=== PATIENT | male | born 1965 | race Caucasian/White ===

== ENCOUNTER 2017-06-03 14:53 | Emergency (ER) | payer OTHER ==
[~2017-06-03] VITALS: Ht 157.5 cm; Wt 36.7 kg
--- NOTE | ~2017-06-03 | EKG ---
[place] [address] [facility] [place] [address] ELECTROCARDIOGRAM REPORT Name: LOIDA MCFADDEN [facility] [id number] Admission: 06/03/17 Attend Phys: Discharge: 06/03/17 Date of : 65 Report #: [id number] THIS REPORT FOR: //name// [facility] ED Test Date: 2017-06-03 Test Time: 15:28:15 Pat Name: LODIA MCFADDEN Department: Room: Gender: M Hand Touch Up Painter: JAVIER : 1965 Requested By: Lorna May Order Number: [id number] MD: Veto Gonzalez Measurements Intervals [place] Rate: 49 P: 47 ME: 118 QRS: -31 QRSD: 84 T: 66 QT: 457 QTc: 413 Interpretive Statements Sinus bradycardia Left axis deviation Nonspecific T abnrm Baseline wander in lead(s) V1 No previous ECG available for comparison Electronically Signed On 06-04-2017 7:53:53 CDT by Veto Gonzalez [email or web address] <ELECTRONICALLY SIGNED> By: Veto Gonzalez MD, [facility] 06/04/17 0753 D: 08/8 152 Veto Gonzalez MD, FACC /EPI
[2017-06-03] MEDS ORDERED: FOLIC ACID1 MG PO (15:49)
[2017-06-03] MEDS ORDERED: LEVOTHYROXIN0.112 M1 PO (15:49)
[2017-06-03 15:52] LABS: ABSOLUTE NEUTROPHILS 2.8 thou/uL (1.4-8.2); EOSINOPHILS 1.6 % (0.0-3.0); HEMATOCRIT 39.4 % (42.0-52.0); HEMOGLOBIN 13.3 gm/dL (14.0-18.0); LYMPHOCYTES 24.1 % (24.0-44.0); MANUAL DIFF NO; MCH 31.7 pg (26.0-34.0); MCHC 33.7 g/dL (28.0-37.0); MCV 94.2 fL (80.0-100.0); MONOCYTES 7.8 % (1.0-8.0); PLATELET COUNT 293 thou/uL (150-400); POLYS 65.5 % (36.0-66.0); RBC 4.18 mil/uL (4.50-6.00); RDW 14.9 % (10.5-14.5); WBC 4.2 thou/uL (4.0-11.0)
[2017-06-03] MEDS ORDERED: PRILOSEC 10MG C10 MG PO (15:52)
[2017-06-03 16:00] LABS: ANION GAP 4 mmol/L (7-16); BUN 28 mg/dL (7-18); CALCIUM 8.8 mg/dL (8.5-10.1); CHLORIDE 109 mmol/L (98-107); CO2 33 mmol/L (21-32); CREATININE 1.1 mg/dL (0.7-1.3); GLUCOSE 103 mg/dL (74-106); POTASSIUM 4.1 mmol/L (3.5-5.1); SODIUM 146 mmol/L (136-145)
[2017-06-03] MEDS ORDERED: IRON325 PO (16:00)
[2017-06-03] MEDS ORDERED: UNICOMPLEX M TA1 TA1 PO (16:01)
[2017-06-03] MEDS ORDERED: PROLIA60 MG/1 ML SQ (16:01)
[2017-06-03] MEDS ORDERED: COLACE100 MG PO (16:01)
[2017-06-03] MEDS ORDERED: CALCIUM 500 +1 EAC5 PO (16:01)
[2017-06-03 16:08] LABS: ALBUMIN 2.9 g/dL (3.4-5.0); ALKALINE PHOSPHATASE 80 U/L (46-116); SGOT 31 U/L (15-37); SGPT 25 U/L (30-65); TOTAL BILIRUBIN 0.3 mg/dL (<0.1-1.0); TOTAL PROTEIN 7.5 g/dL (6.4-8.2); TROPONIN-I < 0.04 ng/mL (<0.04-0.07)
[2017-06-03 16:24] LABS: URINE BLOOD TRACE (Negative); URINE COLOR YELLOW; URINE GLUCOSE-RANDOM* NEGATIVE (Negative); URINE KETONES TRACE (Negative); URINE NITRITE POSITIVE (Negative); URINE PROTEIN (DIPSTICK) 1+ (Negative); URINE SPECIFIC GRAVITY >= 1.030 (1.003-1.035); URINE UROBILINOGEN 0.2 E.U./dl (0.2-1.0)
[2017-06-03 16:26] LABS: ICTOTEST (BILI CONFIRMATORY) Negative (Negative); URINE BILIRUBIN NEGATIVE (Negative)
[2017-06-03 16:36] LABS: BACTERIA >30 Many /HPF (None Seen); CRYSTALS None Seen /LPF (None Seen); HYALINE CASTS 0-3 Few /LPF (None Seen); SQUAMOUS 0-3 Few /LPF (0-3); URINE RBC 3-10 Few /HPF (0-2); URINE WBC >25 Many /HPF (0-5)
[2017-06-03 18:49] VITALS: BP 115/56
[2017-06-03] MEDS ORDERED: KEFLEX250 MG/5 M PO (18:50)
== END 2017-06-03 18:54 | disposition home or self-care (01) ==
LOC: ER 14:53
PROVIDERS: Physician Assistant
DX: N39.0 Urinary tract infection, site not specified (principal); E05.90 Thyrotoxicosis, unspecified without thyrotoxic crisis or storm; R53.1 Weakness; E03.9 Hypothyroidism, unspecified; Z98.890 Other specified postprocedural states; Z88.8 Allergy status to other drugs, medicaments and biological substances; Z88.1 Allergy status to other antibiotic agents

== ENCOUNTER 2020-05-24 07:11 | Inpatient (IN) | payer OTHER ==
[~2020-05-24] VITALS: Ht 152.4 cm; Wt 40.1 kg
--- NOTE | ~2020-05-24 | EMS ---
[facility] [address] [place] [address] EMS Patient Care Report Name: LOIDA MCFADDEN Room #: REG JADIEL Navarrete#: [id number] Admission: 05/24/20 Attend Phys: Discharge: Date of : 65 Report #: [id number] THIS REPORT FOR: //name// Report Transmitted: 05/24/2020 07:00 EMS Care Summary [place], [place]/[facility] Incident [id number] @ 05/24/2020 06:41 Incident Location [address] Patient LOIDA MCFADDEN Male, 54 Years 1965 Patient Address [id number] [place] [address] [address] [place] [address] Patient History Other,Gastro-Esophageal Reflux Disease (GERD),Anemia,Hypothyroidism,Celiac Disease, Patient Allergies Doxycycline,Bactrim,Cipro, Patient Medications Melatonin, Fluticasone, Sertraline, Levothyroxine, Omeprazole, Loratadine, Chief Complaint LEG PAIN Disposition Transported No Lights/[place] Dispatch Reason Falls Transported To [facility] Narrative DISPATCHED FOR A FALL. UPON ARRIVAL ON SCENE, RECEIVED REPORT FROM NURSE. PT HAD EXPERIENCED AN UNWITNESSED FALL. PT ALSO REPORTEDLY HAD DOWN SYNDROME AND [facility] [address] [place] [address] EMS Patient Care Report Name: LOIDA MCFADDEN Room #: REG JADIEL Navarrete#: [id number] Admission: 05/24/20 Attend Phys: Discharge: Date of : 65 Report #: [id number] WAS NON VERBAL AT BASELINE. UPON ARRIVAL AT PT, HE WAS FOUND SITTING IN CHAIR, WITH HIS RIGHT LEG BENT, AND HE WAS CLUTCHING IT. I ASKED HIM TO POINT TO WHERE HE HURT AND HE POINTED TO HIS RIGHT LATERAL THIGH. I ASKED IF HE FELL AND HE NODDED TO INDICATE "YES." THERE WAS NO DEFORMITY OR DISCOLORATION NOTED. PT MOVED TO [facility], SECURED AND MOVED TO AMBULANCE WITHOUT ISSUE. PT MONITORED THROUGHOUT TX WITHOUT CHANGE IN STATUS. Initial Vitals @06:59P: 70,R: 16,BP: 124/66,Pain: 4/10,GCS: 13,SpO2: 100,Revised Trauma: 12, @07:05P: 68,R: 16,BP: 118/64,Pain: 4/10,GCS: 13,SpO2: 99,Revised Trauma: 12, @06:54P: 60,R: 16,Pain: 4/10,GCS: 13, Assessments @06:54MENTAL:Person Oriented,Event Oriented,SKIN:HEENT:Head/Face: No Abnormalities,Neck/Airway: No Abnormalities,LUNG SOUNDS:General: No Abnormalities,Left Upper: No Abnormalities,Right Upper: No Abnormalities,Left Lower: No Abnormalities,Right Lower: No Abnormalities,ABDOMEN:General: No Abnormalities,Left Upper: No Abnormalities,Right Upper: No Abnormalities,Left Lower: No Abnormalities,Right Lower: No Abnormalities,PELVIS//GI:No Abnormalities,EXTREMITIES:Right Leg: Other,Capillary Refill: Left Upper: < 2 Sec,Left Arm: No Abnormalities,Right Arm: No Abnormalities,Left Leg: No Abnormalities,PULSE:Radial: 2+ Normal,NEURO:No Abnormalities,@07:01MENTAL:Event Oriented,Person Oriented,SKIN:HEENT:Head/Face: No Abnormalities,Neck/Airway: No Abnormalities,LUNG SOUNDS:General: No Abnormalities,Left Upper: No Abnormalities,Right Upper: No Abnormalities,Left Lower: No Abnormalities,Right Lower: No Abnormalities,ABDOMEN:General: No Abnormalities,Left Upper: No Abnormalities,Right Upper: No Abnormalities,Left Lower: No Abnormalities,Right Lower: No Abnormalities,PELVIS//GI:No Abnormalities,EXTREMITIES:Right Leg: Other,Capillary Refill: Left Upper: < 2 Sec,Left Arm: No Abnormalities,Right Arm: No Abnormalities,Left Leg: No Abnormalities,PULSE:Radial: 2+ Normal,NEURO:No Abnormalities, Impression Injury of Thigh (Upper Leg) Procedures @06:54ALS AssessmentResponse: UnchangedSucceeded@06:57StretcherResponse: Unchanged Timeline 06:39,Call Received 06:39,Dispatch Notified 06:41,Dispatched 06:44,En Route 06:51,On Scene 06:54,At Patient [address] [address] EMS Patient Care Report Name: LOIDA MCFADDEN Room #: REG JADIEL Navarrete#: [id number] Admission: 05/24/20 Attend Phys: Discharge: Date of : 65 Report #: [id number] 06:54,ALS Assessment,Response: UnchangedSucceeded, 06:54,BP: / M,PULSE: 60,RR: 16 R,SPO2: Ox,ETCO2: ,BG: ,PAIN: 4,GCS: 13, 06:57,Stretcher,Response: Unchanged 06:59,BP: 124/66 M,PULSE: 70,RR: 16 R,SPO2: 100 Ox,ETCO2: ,BG: ,PAIN: 4,GCS: 13, 07:01,Depart Scene 07:05,BP: 118/64 M,PULSE: 68,RR: 16 R,SPO2: 99 Ox,ETCO2: ,BG: ,PAIN: 4,GCS: 13, 07:07,At Destination 07:35,Call Closed Disclaimer v1.1 Copyright 2020 [employer] This EMS Care Summary contains data elements from the applicable legal record (which may be displayed differently). It is designed to provide pertinent information for the following purposes: continuity of care, clinical quality, and state data reporting. The complete legal record is available to ED staff and administrators of the receiving hospital in [place] [employer] Patient Tracker. All data is provided "as is."
[~2020-05-24 07:11] MED LIST: CALCIUM 500 +1 EAC5 PO; COLACE100 MG PO; FOLIC ACID1 MG PO; IRON325 PO; KEFLEX250 MG/5 M PO; LEVOTHYROXIN0.112 M1 PO; PRILOSEC 10MG C10 MG PO; PROLIA60 MG/1 ML SQ; UNICOMPLEX M TA1 TA1 PO
[2020-05-24 07:13] VITALS: BP 130/63
[2020-05-24] MEDS ORDERED: FLUTICASONE PRO16 GM (08:18)
[2020-05-24] MEDS ORDERED: LORATIDINE 10 M10 M1 PO (08:19)
[2020-05-24] MEDS ORDERED: OMEPRAZOLE 20 M20 M1 PO (08:19)
[2020-05-24] MEDS ORDERED: MELATONIN5 MG (08:19)
[2020-05-24] MEDS ORDERED: SERTRALINE HCL50 MG PO (08:20)
[2020-05-24] MEDS ORDERED: VITAMIN D-40010 MCG PO (08:22)
[2020-05-24 11:51] LABS: ABSOLUTE NEUTROPHILS 6.9 thou/uL (1.4-8.2); BASOPHILS 0.2 % (0.0-2.0); EOSINOPHILS 0.1 % (0.0-3.0); HEMATOCRIT 28.2 % (42.0-52.0); HEMOGLOBIN 9.6 gm/dL (14.0-18.0); LYMPHOCYTES 10.3 % (24.0-44.0); MCH 32.8 pg (26.0-34.0); MCHC 34.1 g/dL (28.0-37.0); MCV 96.3 fL (80.0-100.0); MONOCYTES 5.4 % (1.0-8.0); PLATELET COUNT 287 thou/uL (150-400); RBC 2.93 mil/uL (4.50-6.00); RDW 15.7 % (10.5-14.5); WBC 8.2 thou/uL (4.0-11.0)
[2020-05-24 11:55] LABS: CALCIUM 8.1 mg/dL (8.5-10.1); CREATININE 0.9 mg/dL (0.7-1.3); POTASSIUM 3.8 mmol/L (3.5-5.1)
[2020-05-24 16:06] VITALS: BP 100/65
[2020-05-24 16:19] VITALS: BP 100/65
[2020-05-24 16:54] VITALS: BP 110/66
--- NOTE | 2020-05-24 19:07 | NUR ---
[facility] WITH BANDAIDS IN PLACE. PATIENT C/O DISCOMFORT WITH ABDOMEN AREA, 01/19, BUT WANTS TO WAIT UNTIL BEDTIME TO TAKE PAIN MEDS. PATIENT HAS RIGHT UPPER ARM IV IN PLACE, IV FLUIDS STARTED BY SRIKANTH/RN. ADMISSION COMPLETED, REPORT GIVEN TO SRIKANTH.
--- NOTE | 2020-05-24 19:10 | NUR ---
PATIENT ADMITTED FROM ER WITH PELVIC FRACTURE, DISCOMFORT NOTED WITH MOVEMENT. PATIENT HAS DOWNS SYNDROME. PATIENT UNABLE TO SPEAK TO ANSWER QUESTIONS. MARYA/BROTHER HERE FOR ADMISSION. PATIENT HAS LEFT HAND IV IN PLACE. ALERT X 1. LIVES AT [facility]. ADMISSION DONE, REPORT GIVEN TO RADHA/RN.
[2020-05-24 19:19] VITALS: BP 117/58
--- NOTE | 2020-05-25 03:04 | NUR ---
RECEIVED CARE OF THIS PATIENT AT 1900. PATIENT DOES NOT SPEAK MUCH. ORIENTED TO SELF. C/O PAIN, MED GIVEN. R LEG CONTRACTED. SCD'S ON SABIHA LOWER EXT. IS A FEEDER. TAKES MEDS IN APPLESAUCE BUT HOLDS THEM IN MOUTH. NEEDS TO BE CRUSHED IF POSSIBLE. SLEPT MOST OF NIGHT.
[2020-05-25 04:48] VITALS: BP 114/55
[2020-05-25 08:27] VITALS: BP 94/55
--- NOTE | 2020-05-25 13:17 | NUR ---
ASSESSMENT: CM REVIEWED CHART AND MET WITH PATIENT. PT IS A 54 YEAR OLD MALE WITH HX OF DOWNS SYNDROME WHO WAS ADMITTED AFTER A FALL AND HAS PUBIC RAMI FRACTURES. PT IS ABLE TO KNOD YES OR NO BUT UNABLE TO PROVIDE CM WITH INFORMATION. CM REACHED OUT TO PATIENTS BROTHER MARYA WHO REPORTS HE IS HIS DPOA. PT IS FROM [facility]. HE NORMALLY IS ABLE TO AMBULATES INDEPENDENTLY HIS BROTHER STATES BUT IS JUST VERY VERY SLOW. HE STATES HE NORMALLY DOES NOT USE ANY DME. HE REPORTS THAT PATIENTS MOTHER IS CURRENTLY AT [facility] AND THAT PATIENT HAS BEEN TO THEIR SNF BEFORE. HIS BROTHER ALSO REPORTS THAT PT GETS ASSITANCE AT [facility] THROUGH HIS MEDICAID WHERE SOMEONE COMES TO BE WITH HIM 5 DAYS A WEEK M-FRI FROM 9-1430 AND THEN HE AND HIS SISTER SPEND TIME WITH HIM ON THE WEEKENDS. PT/OT HAS BEEN ORDERED TO SEE PATIENT AND ALSO A 5N CONSULT WAS PLACED. CM AWAITING FURTHER INPUT FROM THERAPIES AND 5N AT THIS TIME.
--- NOTE | 2020-05-25 15:41 | NUR ---
ASSUMED CARE OF PATIENT AT SHIFT CHANGE. ASSESSMENT CHARTED. MEDICATION GIVEN PER DEC. PATIENT TAKES PILLS CRUSHED W APPLESAUCE. PATIENT HAS PT/OT AND SPEECH ON TREATMENT TEAM. PATIENT IS NOW ON A MECHANICAL SOFT DIET. PATIENT REQUESTED SOME "PEPSI"; AND TOLERATES THIN LIQUIDS WELL. IS PLEASANT AND ALERT. IS VISIBLY IN PAIN; PRN PAIN MEDICINE ADMINISTERED. PAIN APPEARS RELIEVED. FALL PRECAUTIONS IN PLACE BUT PATIENT IS NOT IMPULSIVE. WILL NOT HAVE SURGICAL INTERVENTION. REMAINS STABLE AND DOES NOT VOICE ANY OTHER NEEDS. WILL CONTINUE TO MONITOR AND FOLLOW POC
[2020-05-25 16:30] VITALS: BP 91/56
--- NOTE | 2020-05-25 18:06 | NUR ---
NEW ONSET OF CONGESTION/COUGH TODAY AT 1700;
--- NOTE | 2020-05-25 19:41 | NUR ---
contacted Delphine orozco secondary to congestion, orders received, pharmacy contacted secondary to benadryl allergy pharmacy states it is a different class and should be ok to give, also pharmacy states ok to crush claritin, sertraline, and tramadol. will continue to monitor, baseline assessment completed, pt resting in bed with no complaints eating pudding, fall precautions in place.
[2020-05-25 20:10] VITALS: BP 91/56
--- NOTE | 2020-05-25 21:07 | NUR ---
1900 ASSUMED CARE OF PT AFTER BEDSIDE REPORT, PT RESTING IN BED WITH MARYA HIS GUARDIAN AT BEDSIDE, PT IS EATING DINNER UNASSISTED BED AT 90 DEGREES, 2029 BASELINE ASSESSMENT COMPLETED, PT DOES NOT APPEAR TO BE IN PAIN AT THIS TIME, PT POSITION CHANGED TO LEFT SIDE, BRIEF CHECKED AND DRY. MEDS CRUSHED AND GIVEN PT TOLERATED WELL, SCDS IN PLACE TO BILATERAL LE, FALL PRECAUTIONS IN PLACE, WILL CONTINUE TO MONITOR AND Q2 HOUR TURN
[2020-05-25 22:00] VITALS: BP 102/59
[2020-05-26] VITALS (70 sets, daily range): BP systolic 63–132; BP diastolic 32–70
--- NOTE | 2020-05-26 03:20 | NUR ---
SPINE SURGEON ACTIVATED FOR INCREASED O2 DEMANDS. SEE FLOWSHEET FOR DETAILS.
[2020-05-26 03:26] LABS: BE(vivo) 1.8 mmol/L (-2 to +3); HCO3 26.8 mmol/L (22.0-26.0); PCO2 43.7 mmHg (35.0-45.0); PO2 69.8 mmHg (80.0-100.0); pH 7.406 (7.360-7.450); sO2 94.1 % (92.0-98.0)
[2020-05-26 03:43] LABS: BASOPHILS 0.2 % (0.0-2.0); HEMATOCRIT 24.7 % (42.0-52.0); HEMOGLOBIN 8.1 gm/dL (14.0-18.0); MCH 32.3 pg (26.0-34.0); MCV 97.7 fL (80.0-100.0); MONOCYTES 5.2 % (1.0-8.0); PLATELET COUNT 222 thou/uL (150-400); POLYS 90.6 % (36.0-66.0); RBC 2.53 mil/uL (4.50-6.00); WBC 9.9 thou/uL (4.0-11.0)
[2020-05-26 04:12] LABS: ALBUMIN 1.2 g/dL (3.4-5.0); CREATININE 0.9 mg/dL (0.7-1.3); TOTAL BILIRUBIN 0.3 mg/dL (0.2-1.0); TOTAL PROTEIN 4.4 g/dL (6.4-8.2)
[2020-05-26 04:25] LABS: CALCIUM 5.4 mg/dL (8.5-10.1)
--- NOTE | 2020-05-26 04:50 | NUR ---
0310 WHILE DOING ROUNDS AND REPOSITIONING PT, RECOGNIZED THAT HE WAS FEBRILE WITH MENTAL STATUS CHANGES MUCH LESS RESPONSIVE, HYPOTENSIVE, TACHYCARDIC, AND HYPOXIC . rAPID RESPONSE CALLED, NONREBREATHER APPLIED AT 100 PERCENT, NEEDLE PUNCH MACHINE OPERATOR HELPER, DORENE AMANDA, RT LAB AND NURSING TO ROOM.NS BOLUS STARTED PER DORENE AMANDA 324 PT TRANSPORTED TO ICU WITH DORENE AMANDA AND REPORT GIVEN TO ICU NURSE AT BEDSIDE.
[2020-05-26 07:52] LABS: CALCIUM 6.2 mg/dL (8.5-10.1); CREATININE 1.4 mg/dL (0.7-1.3); MAGNESIUM 1.4 mg/dL (1.8-2.4)
[2020-05-26 07:55] LABS: APTT 37.3 Seconds (24.5-32.8); D-DIMER 4.28 ug/mLFEU (0.19-0.50); INR 1.3; PROTIME 13.7 Seconds (9.3-11.4)
--- NOTE | 2020-05-26 07:56 | NUR ---
TRANSFER PT TO ROOM 239 AT SHIFT CHANGE. PT WILL BE R/O COVID.
[2020-05-26 07:57] LABS: POTASSIUM 4.1 mmol/L (3.5-5.1)
--- NOTE | 2020-05-26 08:48 | HC ---
[facility] [place] [address] CONSULTATION Name: LOIDA MCFADDEN Room #: 239-P ADM IN M.R.#: [id number] Admission: 05/24/20 Attend Phys: River Hidalgo, Discharge: Date of : 65 Report #: [id number] THIS REPORT FOR: cc: Alejandra Cherry MD,Jez Olguin MD, MD ~ CC: Alejandra Hidalgo [facility] DATE OF SERVICE: 05/26/2020 INFECTIOUS DISEASE CONSULTATION ATTENDING PHYSICIAN: Dr. Hidalgo. REASON FOR EVALUATION: Septic shock. HISTORY OF PRESENT ILLNESS: Chart reviewed, the patient examined. This is a 54-year-old gentleman with a reportedly Down syndrome, who sustained injury as a result of a fall with a pubic rami fracture on the day of admission, was evaluated and was nondisplaced, was maintained in the hospital, developed in 24 hours a temperature elevation to 100.5 with hemodynamic instability, hypotension with a systolic in the 60s. He was found to be hypoxemic with pO2 on 15 liters 69.8. Due to his unstable condition, he was transferred to Intensive Care Unit. He was started on broad-spectrum therapy with Zosyn and vancomycin. Cultures are pending. Clinically, he has improved, although still somewhat hypotensive with tachycardia improved. He is unable to give too much details of his history. ALLERGIES: LISTED TO SULFA, DOXYCYCLINE, NITROFURANTOIN, CIPRO, OXYBUTYNIN, DIPHENHYDRAMINE. CURRENT MEDICATIONS: Include Zosyn, famotidine, ipratropium and albuterol inhaler, hydrocortisone, cholecalciferol, loratadine, levothyroxine, sertraline, melatonin, ondansetron, tramadol, vancomycin. PAST MEDICAL HISTORY: Includes Down syndrome, hypothyroidism, peritoneal urethrostomy, cystotomy, atrial defect 15 years old. SOCIAL HISTORY: Nonsmoker, no ethanol. FAMILY HISTORY: Noncontributory. REVIEW OF SYSTEMS: Not reliably obtained. [facility] [address] [place] [address] CONSULTATION Name: LOIDA MCFADDEN Room #: 239-P [facility] IN M.R.#: [id number] Admission: 05/24/20 Attend Phys: River Hidalgo, Discharge: Date of : 65 Report #: [id number] PHYSICAL EXAMINATION: GENERAL: He does arouse, seems to make eye contact. There is a degree of comprehension, although I think it is minimal, answers some yes/no questions, seemingly denies significant pain at this point. VITAL SIGNS: Temperature 98.3, pulse 88, respirations 12, blood pressure is 88/47. SKIN: Warm. It is pale. HEENT: Normocephalic. Extraocular muscles intact. NECK: Supple. LUNGS: Diminished breath sounds. Few scattered crackles. HEART: Regular. ABDOMEN: Soft. There are no apparent peritoneal signs. GENITOURINARY AND RECTAL: Deferred. LABORATORY DATA: Chest x-ray, mass-like infiltrate, right lung. Electrolytes: Sodium 145, potassium 3.0, chloride 112, bicarbonate is 21, anion gap of 12, BUN and creatinine 19 and 0.9, glucose of 60, albumin of 1.2, total protein ____. Estimated GFR of 88. Lactic acid 1.4. CBC: White count 9.9, H and H 8.1 and 24.7, and platelets of 222,000. CT of the pelvis shows minimally displaced fracture of the lateral portion of the right superior pubic ramus and slightly medial portion of the right inferior pubic ramus. No other acute fracture. ASSESSMENT: Shock with associated fever, certainly at risk for infectious complication. Agree with combination therapy. Continue that and check some additional labs. We will try to collect the urine, it would be a concern in terms of infectious etiology, at this point ruling out COVID. He remains quite tenuous. We will monitor. <ELECTRONICALLY SIGNED> By: Jez Lentz MD 05/26/20 0848 [id number] [id number] Jez Lentz MD /nt
--- NOTE | 2020-05-26 10:30 | NUR ---
PT PLACED ON HOLD FROM P.T. DUE TO DECLINE IN MEDICAL STATUS AND TX TO ICU. PER P.T. PROTOCOL, REQUEST NEW P.T. ORDERS ONCE PT IS APPROPRIATE TO PARTICIPATE IN THERAPEUTIC ACTIVITIES.
--- NOTE | 2020-05-26 15:19 | NUR ---
MARY SCAN PT AND FOUND > 360MLS. HOWEVER DUE TO PT'S ANATOMY UNABLE TO CATH PT OR COLLECT URINE SAMPLE.
--- NOTE | 2020-05-26 17:26 | NUR ---
PT RESTED IN BED AND HAD SEVERAL WET CHEUX. WAS ABLE TO WEAN PT DOWN TO 2LNC AND 2MCG LEVOPHED GTT. PT MORE ALERT AT THE END OF THE SHIFT AND INTERACTIVE. PT PROGRESSING TOWARDS GOALS.
--- NOTE | 2020-05-26 18:55 | NUR ---
BEDSIDE REPORT GIVEN TO JARON RIVER.
[2020-05-27] VITALS (24 sets, daily range): BP systolic 87–129; BP diastolic 48–82
[2020-05-27 04:38] LABS: CALCIUM 7.6 mg/dL (8.5-10.1); CREATININE 1.2 mg/dL (0.7-1.3); POTASSIUM 3.6 mmol/L (3.5-5.1)
[2020-05-27 04:42] LABS: HEMATOCRIT 29.6 % (42.0-52.0); HEMOGLOBIN 9.8 gm/dL (14.0-18.0); MCH 31.8 pg (26.0-34.0); MCHC 33.2 g/dL (28.0-37.0); RBC 3.08 mil/uL (4.50-6.00); RDW 15.7 % (10.5-14.5); WBC 20.1 thou/uL (4.0-11.0)
--- NOTE | 2020-05-27 05:02 | NUR ---
ASSUMED PT CARE AT 1900, PT IS AWAKE, ALERT AND ORIENTED TO SELF, SR ON THE MONITOR, ASSESSMENTS CHARTED, PT STATED THAT HE WANTED SOMETHING TO EAT, APLE JUICE GIVEN, TOOK 2 OUNCES, TOLERATED WELL, REMAINS ON LEVOPHED AT 3, BP REMAINS STABLE, DENIES PAIN OR SOB, O2SATS STABLE ON 2L NC, BS STABLE, PT REMAINS STABLE, NO ACUTE DISTRESS NOTED, WILL CONTINUE TO MONITOR
[2020-05-27 05:40] LABS: PLATELET COUNT 299 thou/uL (150-400)
[2020-05-27 06:26] LABS: ABSOLUTE NEUTROPHILS 19.3 thou/uL (1.4-8.2); PLATELET ESTIMATE NORMAL
[2020-05-27 07:51] LABS: CALCIUM 7.6 mg/dL (8.5-10.1); POTASSIUM 3.5 mmol/L (3.5-5.1)
--- NOTE | 2020-05-27 07:52 | NUR ---
pt remained stable, pt family called and updated on pt status and covid test results, pt tested negative for covid. report passed to day nurse
--- NOTE | 2020-05-27 14:31 | NUR ---
ASSESSMENTS AND INTERVENTIONS DOCCUMENTED. PATIENT UNABLE TO VOID, PATIENT BLADDER SCANNED OVER 400 IN BLADDER. CATHETER ATEMPTS UNSUCCESSFUL. WORKING ON KS FOR UROLOGY SERVICE. PATIENT VOIDING. RESIDUAL 69ML. ORDERS TO TRANSFER TO [facility]. PATIENT ANXIOUS PULLING ON IV AND LEADS. PATIENT REDIRECTED SEVERAL TIMES.
[2020-05-28 01:13] VITALS: BP 95/48
[2020-05-28 02:17] VITALS: BP 106/55
--- NOTE | 2020-05-28 02:33 | NUR ---
ASSUMED PT CARE AROUND 1900. PT IS MED/SURG STATUS. HE IS PLEASANT BUT VERY RESTLESS IN THE BED. HE FIDGETS WITH IV TUBING, LINENS, ETC. HE DOES NOT UNDERSTAND WHEN ORIENTATION OR REDIRECTION IS GIVEN. PT DOES HAVE DOWN SYNDROME. TYLENOL GIVEN FOR PAIN. VSS. AFEBRILE. SPO2 >90% ON RA. NO SOA NOTED. PT PULLED OUT HIS IV. NEW PERIPHERAL IV PLACED. REPORT GIVEN TO 3W NURSE. PT TRANSFERED OUT OF ICU TO ROOM 352 AT 0205. ALL BELONGINGS, INCLUDING GLASSES, DENTURES, CLOTHES, AND WATCH SENT WITH PATIENT. 3W RN (RACH) WILL CALL PT'S BROTHER LATER IN THE MORNING TO NOTIFY HIM OF PT TRANSFER. PT IS PROGRESSING SLOWLY TOWARD POC GOALS.
[2020-05-28 04:24] LABS: ABSOLUTE NEUTROPHILS 14.2 thou/uL (1.4-8.2); BASOPHILS 0.1 % (0.0-2.0); CALCIUM 7.5 mg/dL (8.5-10.1); CREATININE 0.9 mg/dL (0.7-1.3); HEMATOCRIT 25.4 % (42.0-52.0); HEMOGLOBIN 8.7 gm/dL (14.0-18.0); LYMPHOCYTES 2.5 % (24.0-44.0); MCH 32.5 pg (26.0-34.0); MCHC 34.1 g/dL (28.0-37.0); MCV 95.1 fL (80.0-100.0); MONOCYTES 3.1 % (1.0-8.0); POLYS 94.3 % (36.0-66.0); RBC 2.67 mil/uL (4.50-6.00); RDW 15.5 % (10.5-14.5); WBC 15.1 thou/uL (4.0-11.0)
[2020-05-28 04:28] LABS: POTASSIUM 2.7 mmol/L (3.5-5.1)
[2020-05-28 04:31] LABS: PLATELET COUNT 221 thou/uL (150-400)
[2020-05-28 08:02] VITALS: BP 101/57
--- NOTE | 2020-05-28 13:11 | NUR ---
WANDA reviewed chart and spoke with nursing and attending physician. Pt was transferred to 3 from ICU. Pt placed in Enhanced Isolation to r/o COVID-19. Request for transfer to another hospital was intitiated yesterday. Pt needs urology services. WANDA notified by nursing this morning that [facility] did not have a bed available. WANDA spoke with [employer]ope in the [facility] Transfer Center and provided clinical update. WANDA faxed clinical updates and COVID test results to the [facility] Transfer Center for review. [facility] are all on [employer]. [facility] [place] have urology services available. Awaiting acceptance at this time. WANDA spoke with pt's brother, Gonzalo, via phone to provide update. Pt's brother was not aware that a hospital transfer had bee started. WANDA provided update and requested pt's nurse to call Gonzalo to answer his specific questions. Pt's brother is agreeable with transfer to an [facility] facility. WANDA updated pt's nurse and attending physician. WANDA spoke with Roxanne in radiology to have images uploaded to the [facility]. Chart copy ordered. WANDA is following to assist as needed with discharge planning.
[2020-05-28 15:49] VITALS: BP 124/48
--- NOTE | 2020-05-28 18:23 | NUR ---
PRIMARY CONCERN FOR THE PT TODAY WAS OLIGURIA, BLADDER SCAN REVEALED 78CC AT 1400, PT THEN VOIDED AN AMOUNT GREATER (INCONTINENT). PT SUCCESFULLY VOIDING COMMUNICATED TO ATTENDING AND PT'S BROTHER. AT THIS TIME, [facility] WAS FAVORABLE FOR DISCHARGE HOWEVER THEY HAVE NO BED AVAILABLE AT THIS TIME PER , [facility] IS AWAIT[facility] FOR SECOND COVID TEST RESULT TO POPULATE WHICH IS EXPECTED TO COME AROUND WITHIN THE DAY. NO OTHER CONCERNS FROM THE PT AT THIS TIME, POTASSIUM LEVEL WAS 3.1, NOW BEING REPLACED AND WILL BE RECHECKED WHEN BOTH DOSES ARE ADMINISTERED. PT'S BROTHER IS CONCERNED ABOUT PT STAYING ON THE UNIT AT THIS TIME, WILL CONTACT ID WHENEVER PT'S SECOND RESULT COME BACK AND PROGRESS FORWARD TOWARDS DISCHARGE
[2020-05-28 20:08] VITALS: BP 114/42
[2020-05-29 05:27] VITALS: BP 107/50
[2020-05-29 08:05] VITALS: BP 122/55
--- NOTE | 2020-05-29 08:24 | NUR ---
REFUSES PILL THIS MORNING.REPOSITIONED Q2 HOURS AND NEEDED.INCONTINENT FOR BOTH BLADDER AND BOWEL.NO SIGNS OF DISCOMFORT OR PAIN.POC CONTINUED.
[2020-05-29 09:15] LABS: HEMATOCRIT 22.8 % (42.0-52.0); HEMOGLOBIN 7.7 gm/dL (14.0-18.0); MCH 31.7 pg (26.0-34.0); MCHC 33.6 g/dL (28.0-37.0); MCV 94.4 fL (80.0-100.0); RBC 2.42 mil/uL (4.50-6.00); RDW 15.4 % (10.5-14.5); WBC 12.5 thou/uL (4.0-11.0)
[2020-05-29 09:27] LABS: ALBUMIN 1.2 g/dL (3.4-5.0); CALCIUM 7.2 mg/dL (8.5-10.1); CREATININE 0.8 mg/dL (0.7-1.3); POTASSIUM 3.1 mmol/L (3.5-5.1)
--- NOTE | 2020-05-29 11:07 | NUR ---
Received awake on bed. Due medications tried to be given but pt has been pushing away food- Speech therapist present during medication administration. A to self, assisted in ADLs. On MS, not on telemetry. On room air. Vital signs stable. On pureed diet- assisted and encouraged in eating and drinking- refusing at times. Incontinent of bowel and bladder, checked frequently and changed as needed; with urinary diversion. Able to have a bowel movement- charted. Falls bundle in place. With NS at 100cc/hr, infusing well at R FA; on IV antibiotics. Turned every 2 hours. Maintained on isolation. For possible transfer to another hospital, a/w physician and case fitter's advise. With critical level Vancomycin trough: 22- relayed to Dr Booker; informed and aware, antibiotic shifted to Augmentin. To continue monitoring patient.
--- NOTE | 2020-05-29 14:55 | NUR ---
WANDA reviewed chart and spoke with nursing and attending physician. Pt has had two negative COVID tests. Pt to transfer to room 451 later today. WANDA spoke with [facility] transfer center this morning to find out about bed availability for urology services. No beds available at [facility]. WANDA faxed updated clinical info to the transfer center for review. WANDA notified by nursing that transfer is cancelled at this time. Recommendation made for pt to follow up as an outpatient for urology services. WANDA provided update to Rinku at [facility] transfer center to cancel request for transfer. PT/OT ordered to evaluate pt. WANDA contacted director of pediatric rehabilitation to request eval. Pt has been accepted to [facility] for SNF. Pt would need a DA-124 A, B, and C for admission. WANDA discussed with [facility] director of pediatric rehabilitation. WANDA spoke with pt's brother, Gonzalo, via phone to discuss discharge plan. PT's brother is agreeable with plan for post-acute care. Preference would be [facility], as he would be able to visit pt at the hospital. Gonzalo did state that pt may need to go to skilled at [facility] and possibly transition to intermodal dispatcher care. WANDA provided updated to Didi at [facility]. WANDA is following to assist as needed with discharge planning.
--- NOTE | 2020-05-29 18:54 | NUR ---
PT IS CONFUSED, DOWN SYNDROME, 2 NEG COVID TEST, ON A PUREED DIET. PT IS INCONTINENT OF BOWEL AND BLADDER. NS @ 100 RIGHT FOREARM. Y5VSGCT, BEDREST PRIOR TO PT/OT CONSULT FALL PRECAUTIONS IN PLACE AND WILL CONTINUE TO MONITOR.
[2020-05-29 19:39] VITALS: BP 112/54
--- NOTE | 2020-05-30 05:03 | NUR ---
ASSUMED PT CARE AT APPROX 1930. PT BROTHER (MARYA) WAS AT BEDSIDE. BROTHER STATED THAT THE PT WOULD BE ABLE TO NOTIFY WHEN HE NEEDED TO USE THE RESTROOM. PT IS ALERT TO SELF. PT HAS A HISTORY OF DOWN SYNDROME. PT IS INCONTINENT. PT HAD AN ORDER FOR NS TO RUN AT 100. BAG WAS HANGING ON THE POLE ON THE BED. I STARTED THE FLUIDS AFTER FINDING A PUMP. I ADMINISTERED ORAL MEDS WITH NO PROBLEM. PT GRIMACED IN PAIN WHEN WE CHANGED THE BED. I OFFERED TRAMADOL. THE PT CHEWED ON THE PILLS THEN SPIT THEM OUT THREE TIMES. WILL CONTINUE TO MONITOR.
[2020-05-30 07:14] VITALS: BP 106/51
--- NOTE | 2020-05-30 13:55 | NUR ---
PHYSICIAN INDICATED THAT PT WOULD BE MEDICALLY STABL TO DC TO [facility] TODAY IF THEY CAN ACCEPT OR SKILLED AT [facility] TOMORROW. [facility] CAN'T ACCEPT. [facility] CAN. [id number] TO BE COMPLETED AND NEW COVID TEST ORDERD. CM CALLED AND SPOKE WITH PT'S BROTHER MARYA AND NOTIFIED HIM OF THE ABOVE. HE INIDCATED THAT HE WOULD MUCH PREFER PT TO GO TO [facility] HE COULD VISIT AND ASSIST IN TRANSITIONING PT TO HAVING TO GO TO [facility] POTENTIALLY. CM INDICATED THAT [facility]'S GOAL IS ALWAYS DISCHARGE TO [place]UNITY [place]TING [place] OR [place] AND THAT IT IS THOUGHT THAT PT WOULDN'T LIKELY BE SAFE TO RETURN TO THOSE SETTINGS AND WILL LIKELY NEED SNF/LTC PLACEMENT AND LIKELY CAN'T TOLERATE 3HRS OF THERAPY A DAY. CM ASKED THAT [facility] LIAISON CALL AND SPEAK TO MARYA. AWAITING RESPONSE.
[2020-05-30 16:05] VITALS: BP 110/68
[2020-05-30 19:26] VITALS: BP 110/54
--- NOTE | 2020-05-30 19:40 | NUR ---
Assumed pt care this am, POC followed stayed on the recliner for meal and was able to feed himself. Had bm and voided, pt is incontinent of both. pain is managed with medications POC followed, Brother was at the bedside in the afternoon. Medications are crushed and given with pudding or apple sauce since pt tends to spit hte pills out. Endorsed to the night nurse.
--- NOTE | 2020-05-31 01:21 | NUR ---
ASSUMED CARE OF PT AT 1900. PT IS A/O X1. DOES DISPLAY SIGNS OF DISCOMFORT WITH TACTILE STIMULATION OF THE LEFT LEG. PT HAS RESPONDED WITH YES/NO QUESTIONS. PT IS CURRENTLY IN HIS BED LYING DOWN WITH FALL PRECAUTIONS IN PLACE, CALL LIGHT IS WITHIN REACH. WILL CONTINUE TO MONITOR.
[2020-05-31 07:47] VITALS: BP 104/46
[2020-05-31] MEDS ORDERED: TRAMADOL 50 MG50 MG PO (07:52)
[2020-05-31] MEDS ORDERED: AUGMENTIN400 MG/53 PO (07:52)
--- NOTE | 2020-05-31 08:52 | NUR ---
ON 05/30/20: DETENTION DEPUTY FOR PATIENT CALLED ANGLEDOZER OPERATOR WITH CONCERN THAT PATIENT'S FAMILY WAS NOT UNDERSTANDING/ACCEPTING [facility] DECISION REGARDING PATIENT NOT BEING APPROPRIATE FOR REHAB ADMISSION. ANGLEDOZER OPERATOR REACHED OUT TO BROTHER AND EXPLAINED REQUIREMENTS FOR REHAB ADMISSION AND WHY PATIENT WAS NOT A CANDIDATE FOR ADMISSION. BROTHER, MARYA, CONTINUED TO DESIRE [facility] FOR PATIENT. ANGLEDOZER OPERATOR SPOKE WITH DR. FOSTER WHO REVIEWED PATIENT INFORMATION AND CONFIRMED PATIENT NOT A CANDIDATE FOR 5[facility]/ACUTE REHAB. MARYA CALLED AGAIN AND THIS INFORMATION WAS SHARED. Jan GALEANA FLORIST UPDATED.
--- NOTE | 2020-05-31 13:29 | HC ---
[facility] [place] [address] CONSULTATION Name: LOIDA MCFADDEN Room #: 451-P ADM IN M.R.#: [id number] Admission: 05/24/20 Attend Phys: River Hidalgo, Discharge: Date of : 65 Report #: [id number] THIS REPORT FOR: cc: Alejandra Cherry MD, Cora A. MD Deardorff,Dionne Meza MD ~ CC: Alejandra Gil DATE OF SERVICE: 05/25/2020 REASON FOR CONSULTATION: Pelvis fracture. HISTORY OF PRESENT ILLNESS: The patient is a 54-year-old nonverbal patient with Down syndrome, who apparently is nonambulatory. He fell at home. Does not complain of any pain when I asked him. He is able to nod his head at certain points during the examination, but does not speak. The history and physical exam is limited due to his mental status and lack of verbal communication. REVIEW OF SYSTEMS: MUSCULOSKELETAL: The patient denies any pain today in his extremities. NEUROLOGIC: He denies numbness, although again the exam was limited due to his mental status. PAST MEDICAL HISTORY: Obtained from the chart, atrial defect at 15-year-old, Down syndrome, and hypothyroidism. SOCIAL HISTORY: Ambulatory status is unknown. I suspect due to his positioning of his hip in a significantly flexed position that he may be nonambulatory as well as the appearance the atrophied lower extremities. Smoking and alcohol use, none. SURGICAL HISTORY: Again, obtained from the patient's chart, perineal urethrostomy, radical orchiectomy, cystoscopy, dilation, urethroplasty. ALLERGIES: NITROFURANTOIN, OXYBUTYNIN, BENADRYL, CIPRO, BACTRIM, DITROPAN, MACRODANTIN, DOXYCYCLINE, AND SULFONAMIDES. MEDICATIONS: The MAR was reviewed, which shows docusate, cholecalciferol, levothyroxine, sertraline, melatonin, tramadol, ondansetron, morphine sulfate, and acetaminophen. LABORATORY DATA: Laboratory studies done on the date of admission show white blood cell count 8.2, hemoglobin 9.6, hematocrit 28.2, and platelet count 287. Chemistry is grossly normal except for slightly low calcium at 8.1. [address] [address] CONSULTATION Name: LOIDA MCFADDEN Room #: 451-P [facility] IN M.R.#: [id number] Admission: 05/24/20 Attend Phys: River Hidalgo, Discharge: Date of : 65 Report #: [id number] PHYSICAL EXAMINATION: GENERAL: The patient is awake, alert. He is nonverbal. Orientation is unable to be determined. He is thin, has moderate muscle wasting in his lower extremities. He holds his right lower extremity with hip and knee flexed. I am suspicious that he is a non-ambulator based on this appearance; however, his facility needs to be contacted to determine his status prior to this fall. He is in no acute distress. VITAL SIGNS: Most recent vital signs show temperature of 36.8, heart rate is 67, respiratory rate is 18, blood pressure 114/55, and pulse oximetry is 96% on room air. EXTREMITIES: __. The skin is clean, dry and intact. He has 2+ radial pulses bilaterally. He is able to move his fingers and make a near full fist on both. He grossly moves his upper extremities without significant pain. He has gross strength and stability is intact. There is no pain with range of motion. Right lower extremity, he holds his hip and knee in a flexed position. There is no grimace with knee motion. There is grimace with attempted extension of the hip to a more natural position. There is no tenderness to palpation throughout the entire right lower extremity. There is 2+ dorsalis pedis pulse. Skin is clean, dry and intact. Again noted atrophy diffusely of the right lower extremity. Left lower extremity sensation is grossly intact. He wiggles his toes. He wiggles his toes on his right as well. He has no tenderness to palpation throughout the entire left lower extremity. The skin is clean, dry and intact. He has no pain with range of motion of left hip, knee, ankle or foot. RADIOGRAPHS: AP and a CT of the pelvis and left femur were reviewed and interpreted by myself as well as the radiology report was reviewed, which shows right superior and inferior pubic rami fractures. There is no definite hip fracture. IMPRESSION AND PLAN: Right superior and inferior pubic rami fractures in a 54-year-old patient with Down syndrome with unknown pre-fall ambulatory status. I would recommend the facility be contacted to determine his prior ambulatory status. He can be weightbearing as tolerated and follow up as an outpatient with me or one of my partners at [facility] [phone]. I will ask one of my partners to see him over the weekend. Thank you very much. <ELECTRONICALLY SIGNED> By: Dionne Gil MD 05/31/20 [id number] [id number] Dionne Gil MD /nt
--- NOTE | 2020-05-31 14:39 | NUR ---
CM SPOKE WITH PT'S BROTHER/GUARDIAN THIS AM AND INDICATED THAT [facility] CAN'T ACCEPT AND THAT [facility] CAN. CM NOTIFIED HIM THAT CARE TEAM HAS INDICATED THAT PT IS MEDICALLY STABLE TO DC TO [facility] THIS DAY. CM FAXED ORDERS. [facility]AN TRANSPORT ARRANGED FOR 1530. CM COMPLETED LEVEL II SCREENING AND IT HAS BEEN EMAILED TO [facility]. A COPY HAS ALSO BEEN SENT TO [facility]. NURSE CALLED REPORT. PT'S BROTHER MARYA TO SEE PT PRIOR TO DC THIS AFTERNOON. NO OTHER CM INTERVENTION INDICATED. CASE CLOSED.
--- NOTE | 2020-05-31 16:15 | NUR ---
Assumed pt care this am, VS stable pain is managed with medications. Had meals on the recliner and was able to feed himself after a set up. Diet and medications are tolerated well. POC followed with no signs or verbalizations of distress. IV removed pt is transferred to [facility] report given. Brother at the [facility]. Pt is now Dc.
== END 2020-05-31 16:25 | DRG 871 ==
LOC: ER 07:11 → EROBS 11:45 → 4S 11:45 → ICU 05-26 04:22 → 3W 05-28 02:16 → 4W 05-29 16:18
PROVIDERS: Emergency Medicine; Nurse Practitioner Family; Specialist; Surgery; ADMIT Surgery; ATTEND Surgery
DX: A41.9 Sepsis, unspecified organism (principal); J69.0 Pneumonitis due to inhalation of food and vomit; J96.01 Acute respiratory failure with hypoxia; R65.21 Severe sepsis with septic shock; S32.591A Other specified fracture of right pubis, initial encounter for closed fracture; D62 Acute posthemorrhagic anemia; Q21.1 Atrial septal defect; Z20.828 Contact with and (suspected) exposure to other viral communicable diseases; Q90.9 Down syndrome, unspecified; G47.00 Insomnia, unspecified; F32.9 Major depressive disorder, single episode, unspecified; E55.9 Vitamin D deficiency, unspecified; I95.9 Hypotension, unspecified; E03.9 Hypothyroidism, unspecified; R33.9 Retention of urine, unspecified; E87.6 Hypokalemia; Z88.8 Allergy status to other drugs, medicaments and biological substances; Z88.1 Allergy status to other antibiotic agents; W18.39XA Other fall on same level, initial encounter; Y93.89 Activity, other specified; Y92.098 Other place in other non-institutional residence as the place of occurrence of the external cause; Y99.8 Other external cause status
CPT/HCPCS: 10040; 10078; 10080; 10195